=== PATIENT | male | born 1955 | race Caucasian/White ===

== ENCOUNTER → 2016-09-19 | Day surgery (SDC) | payer BC ==
[~2016-09-19] MED LIST: BUPIVACAINE/EPINEPHRINE 0.25% PF 30 ML VIAL ONE; KETOROLAC TROMETHAMINE 30 MG/ML (IVP) VIAL IV PUSH ONE; LACTATED RINGER'S 1000 ML INJ 1,000 ML ONE; MIDAZOLAM HCL 2 MG/2 ML VIAL ONE; ONDANSETRON HCL 4 MG/2 ML VIAL IV PUSH ONE; PROPOFOL 200 MG/20 ML AMP IV ONE; ceFAZolin 2 GM PREMIX 50 ML ONE
--- NOTE | 2016-09-25 14:08 | TN ---
cc: SHARYN HERMAN DATE OF SURGERY: 09/19/2016 PREOPERATIVE DIAGNOSIS Recurrent basal cell carcinoma, right neck over zone 3. POSTOPERATIVE DIAGNOSIS Recurrent basal cell carcinoma, right neck over zone 3. PROCEDURE Wide excision of right neck recurrent basal cell carcinoma. ANESTHESIA General and local anesthetic. ATTENDING SURGEON Talha. INSURANCE COMPLIANCE ANALYST Staff. FINDINGS Grossly 2-3 cm recurrent basal cell carcinoma invading the platysma with negative gross margins at the resection. ESTIMATED BLOOD LOSS 25 cc. COMPLICATIONS None. 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 The patient developed a recurrent hard subcutaneous nodule in this area and biopsy of this recurrent nodule by the patient's primary care doctor did return basal cell carcinoma. The patient per record had a previous squamous cell carcinoma excised from this over one year ago. A discussion was held with the patient about the risks and benefits of excision and he agreed to undergo excision. Preoperative staging with CT scan showed no deep invasion of this lesion and no lymphadenopathy. The patient was also discussed at the [facility] Tumor Board and a wide excision alone was recommended by the Tumor Board. DETAILS OF PROCEDURE After informed consent was obtained, the patient was taken to the operating room and placed in a supine position, placed under general endotracheal anesthesia. The patient's right neck and chest wall were shaved, prepped and draped in sterile fashion. A timeout was performed. Local anesthetic with Marcaine was instilled in the planned area of excision over zone 3 of the neck. We used a 15 blade scalpel to excise the lesion in the skin line of tension horizontally in the neck. Bovie electrocautery was used to dissect down to the subcutaneous tissue and through the platysma 360 degrees around our planned excision. We were then able to elevate the platysma off of the sternocleidomastoid muscle. The right auricular nerve was identified passing over the sternocleidomastoid in the posterior portion of this and this was preserved, although this was dissected extensively to keep it up against the muscle out of our resection. At this point in time we did undermine the platysma and gained some exposure for closure. The specimen was passed off for permanent processing with a stitch marked superior. We had gross negative margins and excellent hemostasis. There was no obvious lymphadenopathy in the neck. We did not open the deep planes of the neck, but these were palpated and there was again no suspicious lymphadenopathy. We closed the platysma using 2-0 Vicryl sutures with minimal tension. We closed the skin and 4-0 Monocryl and Dermabond. The patient at this point in time was discontinued from anesthesia and taken to the PACU in stable condition. The patient tolerated the procedure well. No apparent complications. All counts were correct. I was present and scrubbed for the entire procedure. Sharyn Herman MD AWG/BT /1:22 PM /1:56 PM
== END | disposition home or self-care (01) ==
LOC: ESDC 09:13
PROVIDERS: ATTEND Surgery
DX: C44.41 Basal cell carcinoma of skin of scalp and neck (principal)
CPT/HCPCS: 00300; 11626; 88305; J0690; J1885; J2250; J2405; J3010; J7120